=== PATIENT | male | born 1995 | race Caucasian/White ===

== ENCOUNTER → 2019-05-28 | Outpatient (CLI) | payer OTHER ==
--- NOTE | 2019-05-28 19:41 | REP ---
REASON FOR EXAM: Pain after trauma. PRIORS: None. FINDINGS: No acute fracture or destructive osseous lesion. The mortise is intact. Electronically Signed by Rolo Reardon DO 05/28/2019 07:46 P
== END ==
LOC: M RAD 18:27
PROVIDERS: ATTEND Physician Assistant Medical
DX: S99.911A Unspecified injury of right ankle, initial encounter (principal)